=== PATIENT | female | born 1935 | race Caucasian/White ===

== ENCOUNTER 2017-04-18 10:46 | Emergency (ER) | payer MEDICARE ==
[2017-04-18 11:25] VITALS: BP 193/75
--- NOTE | 2017-04-18 11:45 | UC ---
Cardiac HPI - HPI Summary HPI Summary: mid chest discomfort x 1 week denies any chest pain , no sob no n/v pain lasts for few hrs and improves spontaneously no pain on exertion - History of Current Complaint Chief Complaint: UCChestPain Stated Complaint: CHEST DISCOMFORT Time Seen by Provider: 04/18/17 10:53 Hx Obtained From: Patient, Family/International Exchange Coordinator Onset/Duration: Gradual Onset, Lasting Weeks - 1, Resolved Timing: Intermittent Episodes Lasting: - few hrs Pain Intensity: 2 Chest Pain Location: Mid Sternal Character: Fluttering Aggravating Factor(s): Nothing Alleviating Factor(s): Nothing Associated Signs & Symptoms: Negative: Chest Pain, Vision Changes, Anxiety, Recent Stress, Headaches, Numbness, Tingling, Weakness, Dizziness, SOB, Swelling , Syncope, Fever, Diaphoresis, Nausea/Vomiting, Palpitations, Cough, Hemoptysis , Back Pain, Abdominal Pain, Calf Pain/Swelling - Allergy/Home Medications Allergies/Adverse Reactions: Allergies Allergy/AdvReac Type Severity Reaction Status Date / Time Penicillins Allergy Rash Verified 04/18/17 11:14 quinapril Allergy Coughing Verified 04/18/17 11:14 Sulfa (Sulfonamide Allergy Hives Verified 04/18/17 11:14 Antibiotics) terbinafine Allergy Nausea Verified 04/18/17 11:14 Home Medications: Home Medications Aspirin EC Low Dose* [Ecotrin EC Low Dose 81 MG*] 81 mg PO DAILY 04/18/17 [ History Confirmed 04/18/17] Atorvastatin* [Lipitor*] 40 mg PO DAILY 04/18/17 [History Confirmed 04/18/17] Clopidogrel TAB* [Plavix TAB*] 75 mg PO DAILY 04/18/17 [History Confirmed ] Furosemide TAB* [Lasix TAB*] 20 mg PO DAILY 04/18/17 [History Confirmed 04/18/17 ] Irbesartan 150 mg PO DAILY 04/18/17 [History Confirmed 04/18/17] Lactobacillus Acidophilus [Freeze Dried Acidophilus] 1 cap PO DAILY 04/18/17 [ History Confirmed 04/18/17] Metoprolol Tartrate TAB* [Lopressor TAB*] 12.5 mg PO BID 04/18/17 [History Confirmed 04/18/17] Omeprazole CAP* [Prilosec CAP* 20 MG] 20 mg PO DAILY 04/18/17 [History Confirmed 04/18/17] Potassium Chlor TAB* [Klor Con ER TAB*] 10 meq PO BID 04/18/17 [History Confirmed 04/18/17] PMH/Surg Hx/FS Hx/Imm Hx Cardiovascular History: Cardiac Disease, Hypertension - Surgical History Surgical History: Yes Surgery Procedure, Year, and Place: bipass - Family History Known Family History: Positive: Hypertension - Social History Alcohol Use: None Substance Use Type: None Smoking Status (MU): Never Smoked Tobacco Review of Systems Constitutional: Negative Skin: Negative Eyes: Negative ENT: Negative Respiratory: Negative Cardiovascular: Negative Gastrointestinal: Negative Genitourinary: Negative Is Patient Immunocompromised?: No All Other Systems Reviewed And Are Negative: Yes Physical Exam Triage Information Reviewed: Yes Appearance: Well-Appearing, No Pain Distress, Well-Nourished Vital Signs: Initial Vital Signs Temp 97.7 F 04/18/17 11:20 Pulse 68 04/18/17 11:20 Resp 20 04/18/17 11:20 BP 193/75 04/18/17 11:20 Pulse Ox 100 04/18/17 11:20 Vital Signs Reviewed: Yes Eyes: Positive: Conjunctiva Clear ENT: Positive: Normal ENT inspection, Hearing grossly normal, Pharynx normal Neck: Positive: Supple, Nontender, No Lymphadenopathy Respiratory: Positive: Chest non-tender, Lungs clear, Normal breath sounds, No respiratory distress Cardiovascular: Positive: RRR, No Murmur, Pulses Normal Abdominal Exam: Normal Abdomen Description: Positive: Nontender, Soft. Negative: CVA Tenderness (R), CVA Tenderness (L), Distended, Guarding Bowel Sounds: Positive: Present Diagnostics - EKG Cardiac Rate: NL Cardiac Rhythm: Sinus: Normal Ectopy: PVCs ST Segment: Normal - Clinical Impression Provider Diagnoses: esophagitis Discharge - Discharge Plan Condition: Stable Disposition: HOME Patient Education Materials: Esophagitis (ED) Referrals: Trini Stewart PA [Primary Care Provider] - 5 Days
== END 2017-04-18 11:46 | disposition home or self-care (01) ==
LOC: UCCORT 10:46
DX: K20.9 Esophagitis, unspecified (principal); I51.9 Heart disease, unspecified; I10 Essential (primary) hypertension
CPT/HCPCS: 93005; 99201; G0463